=== PATIENT | female | born 1985 | race American Indian/Alaskan Native ===

== ENCOUNTER 2018-08-16 06:55 | Emergency (ER) | payer SELFPAY ==
[2018-08-16 07:13] VITALS: BP 136/93
[2018-08-16 07:46] LABS: Basophils % (Auto) 0.4 % (0.0-1.8); Eosinophils # (Auto) 0.1 K/mm3 (0.0-0.4); Eosinophils % (Auto) 1.3 % (0.0-4.3); Hematocrit 42.2 % (30.3-42.9); Hemoglobin 14.2 gm/dl (10.1-14.3); Lymphocytes # (Auto) 1.1 K/mm3 (1.2-5.4); Lymphocytes % (Auto) 11.8 % (13.4-35.0); Mean Corpuscular HGB Conc 34 % (30-34); Mean Corpuscular Volume 93 fl (79-97); Monocytes # (Auto) 0.5 K/mm3 (0.0-0.8); Monocytes % (Auto) 5.1 % (0.0-7.3); Platelet Count 263 K/mm3 (140-440); Red Blood Count 4.55 M/mm3 (3.65-5.03); Red Cell Distribution Width 15.9 % (13.2-15.2)
[2018-08-16 07:50] LABS: Alanine Aminotransferase 9 units/L (7-56); Albumin 4.2 g/dL (3.9-5); BUN/Creatinine Ratio 10; Blood Urea Nitrogen 7 mg/dL (7-17); Calcium 9.4 mg/dL (8.4-10.2); Hemolysis Index 75
== END 2018-08-16 08:11 | disposition left against medical advice (07) ==
LOC: ED 06:55
DX: R11.10 Vomiting, unspecified (principal); R10.9 Unspecified abdominal pain; Z53.21 Procedure and treatment not carried out due to patient leaving prior to being seen by health care provider
CPT/HCPCS: 36415; 80053; 83690; 84703; 85025

== ENCOUNTER 2018-10-05 20:27 | Emergency (ER) | payer OTHER ==
--- NOTE | 2018-10-05 21:15 | Emergency Department Report ---
Chief Complaint: Chest Pain Stated Complaint: CHEST PAIN/TROUBLE BREATHING Time Seen by Provider: 10/05/18 21:11 - HPI History of Present Illness: pt presents with right sided CP that began today that lasted 20-30 minutes now chest tightness no radiation of the pain felt SOB dry cough never had before no fever no N/V states increased stress, father just , mother just was diagnosed with Alzheimers hx of hiatal hernia - Exam Vital Signs: Vital Signs 10/05/18 20:37 Temperature 98.8 F Pulse Rate 72 Respiratory 18 Rate Blood Pressure 123/82 O2 Sat by Pulse 100 Oximetry MSE screening note: Focused history performed Due to findings the following was ordered: XR chest with abdomen, urine preg, UA, EKG ED Disposition for MSE Condition: Stable
[2018-10-06 19:41] VITALS: BP 123/82
== END 2018-10-05 21:27 | disposition left against medical advice (07) ==
LOC: ED 20:27
DX: R07.89 Other chest pain (principal); Z53.21 Procedure and treatment not carried out due to patient leaving prior to being seen by health care provider
CPT/HCPCS: 93005; 93010